=== PATIENT | female | born 1985 | race Caucasian/White ===

== ENCOUNTER 2020-02-22 14:32 | Emergency (ER) | payer OTHER ==
[2020-02-22 15:24] LABS: #Basophils 0.1 thou/uL (0.0-0.2); #Eosinphils 0.2 thou/uL (0.0-0.7); #Lymphocytes 2.1 thou/uL (1.20-3.40); #Monocytes 0.5 thou/uL (0.11-0.59); %Basophils 0.7 % (0.0-1.0); %Eosinophils 2.6 % (0.0-10.0); %Lymphocytes 26.5 % (21.0-51.0); %Monocytes 6.6 % (0.0-10.0); %Neutrophils 63.7 % (42.0-75.0); Hemoglobin 14.5 g/dL (12.0-16.0); Mean Corpuscular Hemoglobin 32.9 pg (27.0-31.0); Mean Corpuscular Volume 96.7 fL (78.0-98.0); Mean Platelet Volume 6.5 fL (7.4-10.4); Platelet Count 289 thou/uL (130-400); RBC Distribution Width 11.5 % (11.5-14.5); Red Blood Cell (RBC) Count 4.42 mill/uL (4.20-5.40); White Blood Cell (WBC) Count 7.9 thou/uL (4.8-10.8)
[2020-02-22 15:44] LABS: ALT (SGPT) 11 U/L (8-55); AST (SGOT) 13 U/L (5-34); Albumin 4.1 g/dL (3.5-5.0); Alkaline Phosphatase 89 U/L (40-110); Anion Gap 9 mmol/L (10-20); BUN (Urea Nitrogen) 12 mg/dL (7.0-18.7); Bilirubin, Total 0.5 mg/dL (0.2-1.2); Calc. Creatinine Clearance 0 mL/min (70-130); Calcium 9.2 mg/dL (7.8-10.44); Carbon Dioxide 32 mmol/L (22-29); Chloride 100 mmol/L (98-107); Estimated GFR-MDRD 65; Globulin 2.9 g/dL (2.4-3.5); Glucose 271 mg/dL (70-105); Potassium 3.6 mmol/L (3.5-5.1); Sodium 137 mmol/L (136-145)
[2020-02-22 15:47] LABS: BHCG - Serum POSITIVE (NEGATIVE); Pregs Control Background? CLEAR/WHITE (CLR/WHITE); Pregs Control Bar Appear? YES (CONTROL BAR)
--- NOTE | 2020-02-22 16:48 | ULT ---
US Pelvic Transvag W Doppler History: Cramping with and vaginal bleeding Comparison: None. Findings: Real-time grayscale, color and spectral analysis of the pelvis was performed transabdominal and transvaginal approach. There is intrauterine gestational sac containing a yolk sac and pole without heart tones. Adequate vascular flow to both ovaries. No free fluid in the pelvis. Small posterior myometrial subserosal fibroid measures 11 mm. The gestational mean sac diameter is 1.92 cm. The crown-rump length measures 1.18 cm. Impression: Findings diagnostic of failure with absent heart tones within the intrauterine fetus.
== END 2020-02-22 17:31 | disposition home or self-care (01) ==
LOC: ERS 14:32
DX: O02.1 Missed abortion (principal); E10.9 Type 1 diabetes mellitus without complications; E03.9 Hypothyroidism, unspecified; Z79.899 Other long term (current) drug therapy
CPT/HCPCS: 36415; 76856; 80053; 84702; 84703; 85025; 86900; 86901

== ENCOUNTER 2020-08-09 17:16 | Emergency (ER) | payer OTHER ==
[2020-08-09 23:05] LABS: SARS-CoV-2 PCR by NAA DETECTED (NotDetected)
== END 2020-08-09 18:00 | disposition home or self-care (01) ==
LOC: ERS 17:16
DX: U07.1 COVID-19 (principal); E10.9 Type 1 diabetes mellitus without complications; E03.9 Hypothyroidism, unspecified
CPT/HCPCS: 87635; 99283; U0003; U0005

== ENCOUNTER 2024-04-11 13:15 | Outpatient (CLI) | payer BC | END 2024-04-11 13:16 | disposition home or self-care (01) | LOC: SCSRAD 13:15 | PROVIDERS: ATTEND Anesthesiology | DX: M79.641 Pain in right hand (principal) ==